=== PATIENT | female | born 1995 | race Caucasian/White ===

== ENCOUNTER 2023-02-19 21:55 | Emergency (ER) | payer MEDICAID, OTHER ==
[~2023-02-19] VITALS: Ht 154.9 cm; Wt 117.9 kg
[2023-02-19 22:23] VITALS: BP_SYST 98; PULSE 90; RESP 20; TEMP 98; O2SAT 98
[2023-02-20] MEDS ORDERED: KETOROLAC TROMETHAMINE 30 MG VIAL IM ONE (01:00)
[2023-02-20 02:00] VITALS: BP_SYST 102; PULSE 85; RESP 18; TEMP 97.9; O2SAT 98
== END 2023-02-20 02:00 | disposition home or self-care (01) ==
LOC: SED 21:55
DX: S60.221A Contusion of right hand, initial encounter (principal); J45.909 Unspecified asthma, uncomplicated; Z79.899 Other long term (current) drug therapy; W51.XXXA Accidental striking against or bumped into by another person, initial encounter; Y93.89 Activity, other specified; Y92.89 Other specified places as the place of occurrence of the external cause; Y99.8 Other external cause status
CPT/HCPCS: 99283; 73130; 96372; J1885